=== PATIENT | female | born 2000 | race Two or more races ===

== ENCOUNTER 2025-05-15 05:12 | Inpatient (IN) | payer BC, OTHER ==
[~2025-05-15] VITALS: Ht 167.6 cm; Wt 72.6 kg
[2025-05-15] MEDS ORDERED: LIDOCAINE 2%HCL (LOCAL ANESTH.) INJ 20ML MDV IJ PRN (05:45)
[2025-05-15] MEDS ORDERED: LACTATED RINGER'S 1,000 ML IV SCH (05:45)
[2025-05-15] MEDS: ceFAZolin 2 GM/D5W50ml 50 ML IV ONE (06:28)
--- NOTE | 2025-05-15 06:38 | DVHHP2 ---
OB CC & HPI Date Date of Admission: May 15, 2025 Patient Identification: : 5 Para: 4 EDC: May 27, 2025 EGA: 38.2 Chief Complaints: Reason for admission: active labor History of Present Complaints 25yo IUP@38.2wks presents in active labor. Pt reports UCs started at 1100 on 05/14/25 but got stronger at midnight with bloody show. Wants an epidural. Denies LOF/heavy VB/SCOTT/vision changes/RUQ pain. Endorses +FM. PNC with Dr. Dobbs at [facility], PNC uncomplicated per pt, no records available. Pt denies HTN or GDM. OB hx: x4, uncomplicated, denies PPH/blood transfusion Past Medical History Cardiac: No pertinent Hx Pulmonary: No pertinent Hx Central Nervous System: No pertinent Hx GI: No pertinent Hx Hemotology/Oncology: No pertinent Hx Hepatobiliary: No pertinent Hx Psychiatric: No pertinent Hx Musculoskeletal: No pertinent Hx Rheumotologic: No pertinent Hx Infectious Disease: No peritnent Hx ENT: No pertinent Hx Renal/: No pertinent Hx Endocrine: No pertinent Hx Dermatology: No pertinent Hx Others PSYCH hx: denies Past Surgical History: Other (left leg surgery as a child) OB History OB History Care: Good Care (per pt, no records available) Obstetrical Complications: None Medical Complications: None Allergies: Coded Allergies: Amoxicillin (Verified Allergy, Mild, rash, 05/15/25) Home Meds PNV Current Medications Current Medications Medications (Trade) Dose Ordered Sig/Freeman Route PRN Reason Start Time Stop Time Status Last Admin Lactated Ringer's 1,000 ml @ 125 mls/hr Q8H IV 05/15/25 05:45 Witch Quin (Tucks) 1 pad PRN PRN TOP PERINEAL AREA DISCOMFORT 05/15/25 05:45 Sodium Lauryl Sulfate (Phisoderm) 240 ml PRN PRN TOP PERINEAL AREA DISCOMFORT 05/15/25 05:45 Benzocaine (Dermoplast) 1 applic PRN PRN TOP PERINEAL AREA DISCOMFORT 05/15/25 05:45 Lidocaine HCl (Xylocaine) 20 ml ONCE PRN IJ PERINEAL AREA DISCOMFORT 05/15/25 05:45 Family & Social History Family/Social History Past Family/Social History: denies Blood Type: Unknown Rubella: unknown RPR/VDRL: Unknown GBS Status: Unknown HBsAG: Unknown Review of Systems Constitutional: No symptom reported Ears, Nose, & Throat: No symptom reported Eyes: No symptom reported Pulmonary/Respiratory: No symptom reported Cardiovascular: No symptom reported Gastrointestinal: No symptom reported Genitourinary: No symptom reported Musculoskeletal: No symptom reported Skin: No symptom reported Psychiatric: No symptom reported Endocrine: No symptom reported Hemotologic/Lymphatic: No symptom reported OB Admission Exam Physical Exam Vitals: VSS, see CPN HEENT: TMs Normal, Fontanelles Normal, Nasal Mucosa Normal, Eyes non-injected, Oropharynx Normal, PERRLA, Moist Membranes, EOMI Heart: Rhythm Normal Lungs: Clear Abdomen: Gravid Extremities: Normal Reflexes: Normal Pelvic Exam: SVE by RN: /-3, vertex Membranes: Intact Heart Rate: 140's Accelerations: Accelerations Present Decelerations: No Decelerations Group Home Variability: Average (6-25) Frequency of Contractions: q4-5 min Intensity: Moderate OB Plan Plan Admitting Diagnosis: Active Labor Plan: Expectant Management Other Plan: A: 25yo IUP@38.2wks Active Labor Category I EFM Intact Membranes GBS unknown P: Admit to L&D Informed consent obtained Expectant management Ancef IV ordered for GBS prophylaxis, pts allergy to amoxicillin was a rash as a child monitoring per order OB complete sono ordered Walk-in labs and hgA1c ordered Pain mgmt PRN Frequent position changes in and out of bed encouraged Limit SVE unless necessary Intrauterine resuscitation PRN Anticipate CN will consult with Dr. Coronado PRN Visit Coding OBGYN Date of Service: May 15, 2025 Billing Provider: MANAS MCELROY CNM FOUNDRY OPERATOR Common Visit Codes: 49606-QUMFZDD INP/OBS CARE (MOD) FOUNDRY OPERATOR Procedure Codes: 25870-21- NON-STRESS TEST MANAS MCELROY CNM May 15, 2025 06:38
[2025-05-15] MEDS: NALOXONE HCL 0.4 MG/ML VIAL IV ONE (06:45)
[2025-05-15 07:06] LABS: Urine Protein, UAD TRACE (Negative)
[2025-05-15 07:11] LABS: Hemoglobin 11.5 g/dL (12.2-16.2); Nucleated Red Blood Cells % 0.0 %
[2025-05-15 07:15] LABS: Hematocrit 35.0 % (36.0-46.0); Mean Corpuscular Hemoglobin 24.2 pg (28.0-32.0); Mean Corpuscular Volume 73.3 fL (80.0-100.0)
[2025-05-15 07:31] LABS: INR 0.9 (0.9-1.15); Partial Thromboplastin Time 27.1 SEC (24.5-34.5); Prothrombin Time 9.6 sec (9.3-11.8)
--- NOTE | 2025-05-15 07:31 | DVH ---
LIMITED OB ULTRASOUND > 14 WKS: HISTORY: No records. TECHNIQUE: Multiple real-time grayscale images of the gravid uterus with duplex Doppler color flow an d M-mode spectral analysis. FINDINGS: IUP single live fetus at 38 weeks 0 days based on composite averages of the BPD, head circumference, abdominal circumference and femur length. measurements are as follows: BPD: 9.6 cm, 39 weeks 3 days HC: 33.4 cm, 38 weeks 1 day AC: 33.2 cm, 37 weeks 1 day FL: 7.3 cm, 37 weeks 1 day GENARO 05/29/25 Estimated weight 3228 grams heart rate 139 beats per minute ANTON 6.6 cm Cervix not visualized Cephalic Presentation Grade 2 anterior Placenta without previa or abruption. IMPRESSION: 1. IUP single live fetus at 38 weeks 0 days AUA corresponding to an GENARO of
[2025-05-15 07:36] LABS: Alanine Aminotransferase 10 U/L (7-40); Albumin 3.9 g/dL (3.2-4.8); Anion Gap 12 (5-15); Calcium 8.9 mg/dL (8.7-10.4); Carbon Dioxide 22 mmol/L (20-31); Chloride 103 mmol/L (98-107); Glucose 96 mg/dL (74-106); Sodium 137 mmol/L (136-145); Total Protein 7.1 g/dL (5.7-8.2); Uric Acid 4.5 mg/dL (3.1-7.8)
[2025-05-15 07:37] LABS: Bilirubin, Total 0.8 mg/dL (0.2-1.0)
[2025-05-15 07:40] LABS: Amphetamine Screen, Urine Neg (NEGATIVE); Barbiturate Scree,Urine Neg (NEGATIVE); Benzodiazephine Screen, Urine Neg (NEGATIVE); Cannabinoid Screen, Urine Neg (NEGATIVE); Cocaine Screen, Urine Neg (NEGATIVE); Opiate Scree,Urine Neg (NEGATIVE); Phencyclidine Screen, Urine Neg (NEGATIVE)
[2025-05-15 07:45] LABS: Alkaline Phosphatase 193 U/L (46-116); BUN/Creatinine Ratio 9.6 (10.0-20.0); Blood Urea Nitrogen < 5 mg/dL (9-23); Potassium 3.4 mmol/L (3.5-5.1)
--- NOTE | 2025-05-15 08:12 | DVHPN2 ---
Chief Complaints Patient reports: No new complaints Nursing reports: No new complaints Objective Medications Current Medications Medications (Trade) Dose Ordered Sig/Freeman Route PRN Reason Start Time Stop Time Status Last Admin Benzocaine (Dermoplast) 1 applic PRN PRN TOP PERINEAL AREA DISCOMFORT 05/15/25 05:45 Lactated Ringer's 1,000 ml @ 125 mls/hr Q8H IV 05/15/25 05:45 Lidocaine HCl (Xylocaine) 20 ml ONCE PRN IJ PERINEAL AREA DISCOMFORT 05/15/25 05:45 Sodium Lauryl Sulfate (Phisoderm) 240 ml PRN PRN TOP PERINEAL AREA DISCOMFORT 05/15/25 05:45 Witch Quin (Tucks) 1 pad PRN PRN TOP PERINEAL AREA DISCOMFORT 05/15/25 05:45 Others ve-6cm/80/-2 Studies Laboratory Tests 05/15/25 06:43 Test 05/15/25 06:43 Range/Units Serum Glucose 96 74-106 mg/dL Ass/Plan Assessment active labor Plan recieved epidural may start pitocin if needed Visit Coding OBGYN Date of Service: May 15, 2025 Billing Provider: ARNOLDO CHAPMAN DO STAFF ANESTHESIOLOGIST Common Visit Codes: 19309-MPQHPXB OBS CARE (HIGH) STAFF ANESTHESIOLOGIST Procedure Codes: 55239-57- NON-STRESS TEST ARNOLDO CHAPMAN DO May 15, 2025 08:12
[2025-05-15] MEDS: LACT. RINGERS/OXYTOCIN 20UNITS 500 ML IV ONE ×2 (09:34→09:35)
[2025-05-15] MEDS: ROPIVACAINE HCL 100 ML ONE (09:36)
--- NOTE | 2025-05-15 10:08 | LDN2 ---
Labor and Delivery Note Date 05/15/25 Age 25 5 Para 5 EDC 10-27 EGA 38wks Diagnosis labor Vaginal Delivery: VTX Vacuum Assisted: No Placenta: Spontaneous Sex: Female Apgars 9-9 Nuchal Cord Transected: No Amniotic Fluid: Clear Anesthesia epidural Episiotomy: No Extension: No EBL 300ml Labs Laboratory Tests 05/15/25 06:43: HIV (1&2) Antibody Negative, Rubella Antibody Positive Blood Bank 05/15/25 06:43: Blood Type A POSITIVE Complications none Conditions stable Comments/Significant Med Elysia spec exam no cxzal lac Visit Coding OBGYN Date of Service: May 15, 2025 Billing Provider: ARNOLDO CHAPMAN DO INDUSTRIAL FABRIC CUTTER Common Visit Codes: 45557-[id number] OBS CARE (HIGH) INDUSTRIAL FABRIC CUTTER Procedure Codes: 45104-DMT DELIVERY ONLY ARNOLDO CHAPMAN DO May 15, 2025 10:08
[2025-05-15] MEDS ORDERED: ONDANSETRON ODT 4 MG TAB PO PRN (10:15)
[2025-05-15] MEDS ORDERED: ACETAMINOPHEN 325 MG TAB PO PRN (10:15)
[2025-05-15] MEDS: IBUPROFEN 600 MG TAB PO PRN (11:56)
[2025-05-15 14:45] VITALS: BP 122/68; PULSE 96; RESP 16; TEMP 97.1; O2SAT 95
[2025-05-15] MEDS: DOCUSATE SOD 100 MG CAP PO ONE (16:02)
[2025-05-15] MEDS: POTASSIUM CHL 20 Meq TABLET PO ONE (16:05)
[2025-05-15 18:30] VITALS: BP 109/82; PULSE 75; RESP 18; TEMP 98.1; O2SAT 100
[2025-05-15] MEDS ORDERED: IBU600T PO (20:38)
[2025-05-15] MEDS ORDERED: PREN-96 PO (20:38)
[2025-05-15] MEDS: DERMOPLAST 60ML BOTTLE TOP PRN (20:54)
[2025-05-15] MEDS: WITCH HAZEL-GLYCERIN PAD TOP PRN (20:55)
[2025-05-15] MEDS: PHISODERM TOP SOLN 240ML BTL TOP PRN (20:55)
[2025-05-15 23:00] VITALS: BP 117/80; PULSE 63; RESP 16; TEMP 97.8; O2SAT 99
--- NOTE | 2025-05-16 00:22 | DVHDS2 ---
Obstetrics Discharge Summary Obstetrics Discharge Summary Date of Admission: May 15, 2025 Date of Discharge: May 16, 2025 Reason For Admission: Onset of Labor Procedures: NST, Ultrasound Intrapartum Procedures: Spontaneous vaginal deliv (GBS unk, IV Ancef given x 1 dose prior to delivery) Procedures: Hct/date: (05/16/25), Hgb/date: (05/16/25) Operative Complicat: None Discharge Diagnosis: Term -Delivered Discharge Information: Activity (Unrestricted), Diet (Routine), Medications (RX SENT TO PHARMACY), Instructions (Routine, avoid heavy lifting, nothing in vagina for 6 weeks), Discharge to (Home), Accompanied by (spouse), Discarge date (05/16/2025) Visit Coding OBGYN Date of Service: May 16, 2025 Billing Provider: MANAS MCELROY CNM GRIT REMOVAL OPERATOR Common Visit Codes: 69001-MHP/OBS DISCH DAY <30MIN HARIS VENTURA May 16, 2025 00:22
--- NOTE | 2025-05-16 00:37 | DVHPN2 ---
Progress Note Date Seen: May 16, 2025 Subjective S: bleeding is less, eating food without issues, denies SCOTT/vision changes/lightheaded/dizziness, pain well controlled with oral medications, no concerns with urinating, no flatus or BM yet, ambulating well, well, BCM undecided vital signs Vital Sign Date Time Temp Pulse Resp B/P (MAP) Pulse Ox O2 Delivery O2 Flow Rate FiO2 05/15/25 23:00 97.8 63 16 117/80 (92) 99 97.8 05/15/25 18:30 Room Air Total Intake and Output 05/15/25 05/15/25 05/16/25 15:00 23:00 07:00 Output Total 1100 ml 950 ml Balance -1100 ml -950 ml medications Current Medications Medications Dose Ordered Sig/Freeman Route Start Time Stop Time Status Last Admin Dose Admin Yesenia Quin 1 pad PRN PRN TOP 05/15/25 05:45 05/15/25 20:55 1 PAD Sodium Lauryl Sulfate 240 ml PRN PRN TOP 05/15/25 05:45 05/15/25 20:55 240 ML Benzocaine 1 applic PRN PRN TOP 05/15/25 05:45 05/15/25 20:54 1 APPLIC Ibuprofen 600 mg Q6HP PRN PO 05/15/25 10:15 05/15/25 18:46 600 MG Acetaminophen 650 mg Q4HP PRN PO 05/15/25 10:15 Ondansetron HCl 4 mg Q4HPRN PRN PO 05/15/25 10:15 laboratory and microbiology Laboratory Tests 05/15/25 06:43 Test 05/15/25 06:43 Range/Units Serum Glucose 96 74-106 mg/dL Objective O: VSS Chest: heart and lung sounds normal. Abd soft, non-tender, fundus firm at U and midline, active BS, no rebound or guarding Perineum: intact, no edema BLE: Non-tender, no edema Lochia - minimal, no foul odor see lab results K+ 40 mEq PO given Problems(with codes): (1) 38 weeks gestation of (2) (normal spontaneous vaginal delivery) (3) Hypokalemia Assessment/Plan A: 25 yo ppd#1 s/p Rh status + Breast/bottle feeding Rubella status immune Pain control with PO medications hypokalemia P: D/C home today pending repeat CMP and CBC in AM Rx sent to pharmacy precautions and preeclampsia warning signs reviewed Bowel regimen encouraged with high fiber diet, stool softener and lots of fluid f/u with [facility] OB office in 2 weeks Plan discussed with: Patient HARIS VENTURA May 16, 2025 00:37
[2025-05-16 02:51] VITALS: BP 113/64; PULSE 71; RESP 16; TEMP 98.7; O2SAT 98
--- NOTE | 2025-05-16 07:06 | ECG ---
[facility] Test Date: 2025-05-15 Test Time: 07:37:54 Pat Name: SHARON SCHAEFER Department: Room: [facility] A Gender: F System Technologist: GISELLA : 2000 Requested By: MANAS MCELROY Order Number: [id number] Reading MD: Deon Greene Measurements Intervals [place] Rate: 108 P: 62 [place]: 124 QRS: 39 QRSD: 70 T: 45 QT: 344 QTc: 460 Interpretive Statements Sinus tachycardia Electronically Signed On 05-18-2025 17:31:33 PDT by Deon Greene Please click the below link to view image of tracing.
[2025-05-16 07:41] LABS: Hematocrit 29.7 % (36.0-46.0); Hemoglobin 10.0 g/dL (12.2-16.2); Mean Corpuscular Hemoglobin 24.6 pg (28.0-32.0); Mean Corpuscular Volume 72.9 fL (80.0-100.0); Nucleated Red Blood Cells % 0.0 %
[2025-05-16 07:49] LABS: Albumin 3.2 g/dL (3.2-4.8); Anion Gap 8 (5-15); Carbon Dioxide 23 mmol/L (20-31); Chloride 106 mmol/L (98-107); Glucose 82 mg/dL (74-106); Potassium 3.8 mmol/L (3.5-5.1); Sodium 137 mmol/L (136-145); Total Protein 5.8 g/dL (5.7-8.2)
[2025-05-16 07:50] LABS: Alanine Aminotransferase < 9 U/L (7-40); Alkaline Phosphatase 143 U/L (46-116); BUN/Creatinine Ratio 11.1 (10.0-20.0); Bilirubin, Total 0.5 mg/dL (0.2-1.0); Blood Urea Nitrogen < 5 mg/dL (9-23); Calcium 8.0 mg/dL (8.7-10.4)
[2025-05-16] MEDS ORDERED: DOCU-94 PO (10:52)
[2025-05-16] MEDS ORDERED: FER325T PO (10:52)
== END 2025-05-16 11:03 | disposition home or self-care (01) | DRG 807 ==
LOC: LDRP 05:12 → OBSVTOIN 05:25 → LDRP 05:29
PROVIDERS: ADMIT Obstetrics & Gynecology; ATTEND Obstetrics & Gynecology
PROC: 10E0XZZ Delivery of Products of Conception, External Approach (ICD-10-PCS; principal; 2025-05-15)
PROC: 3E0R3BZ Introduction of Anesthetic Agent into Spinal Canal, Percutaneous Approach (ICD-10-PCS; 2025-05-15)
PROC: 00HU33Z Insertion of Infusion Device into Spinal Canal, Percutaneous Approach (ICD-10-PCS; 2025-05-15)
DX: O99.284 Endocrine, nutritional and metabolic diseases complicating childbirth (principal); Z37.0 Single live birth; E87.6 Hypokalemia; Z3A.38 38 weeks gestation of pregnancy; Z88.0 Allergy status to penicillin
CPT/HCPCS: 36415; 59025; 59409; 59612; 62282; 76805; 80053; 80307; 81001; 81002; 83036; 84550; 85025; 85610; 85730; 86703; 86762; 86780; 86803; 86850; 86900; 86901; 87340; 93005; 94760; 96360; 96361; 96365; 96366; G0378; J2590